=== PATIENT | male | born 1940 | race Caucasian/White ===

== ENCOUNTER 2020-07-26 07:43 | Observation (INO) ==
--- NOTE | 2020-07-20 14:13 | PAT Medication Instructions ---
Medication Instructions Date of Service July 20, 2020 Home Medications acetaminophen [Tylenol Arthritis Pain] 650 mg PO BID atorvastatin 20 mg PO HS ferrous sulfate [iron] 325 mg PO 2XWK levothyroxine 50 mcg PO QAM multivitamin 1 cap PO DAILY pyridoxine (vitamin B6) [Vitamin B-6] 100 mg PO DAILY tamsulosin 0.4 mg PO BID DO NOT take the morning of surgery ferrous sulfate [iron] 325 mg PO 2XWK multivitamin 1 cap PO DAILY pyridoxine (vitamin B6) 100 mg PO DAILY Take morning of surgery With a small sip of water, OTHERWISE NOTHING TO EAT OR DRINK AFTER MIDNIGHT: acetaminophen [Tylenol Arthritis Pain] 650 mg PO BID (if needed, may be taken up to four hours before surgery) levothyroxine 50 mcg PO QAM tamsulosin 0.4 mg PO BID Take evening before surgery acetaminophen [Tylenol Arthritis Pain] 650 mg PO BID atorvastatin 20 mg PO HS tamsulosin 0.4 mg PO BID Other Notes If you have any questions please call us at [phone] or [phone] or [phone] or [phone]
--- NOTE | 2020-07-23 11:38 | Anesthesiology Consultation ---
Date of Service July 23, 2020 Assessment & Plan (1) Encounter for pre-operative examination: Per assessment on 07/20: Travel screen negative. No known COVID-19 positive contacts or current COVID-19 related symptoms. Surgeon arranging preop COVID testing (done already 07/23 at [facility] per pt). Awaiting results. Chart Review Chart Review: Acceptable Risk for Surgery (pending surgeon-ordered PCP clearance) and Patient seen in Pre Admission Testing Teaching & Discussion Pre-Anesthesia Teaching/Discussion Notes: Instructed NPO after midnight before surgery,except medications with 15 cc of water. Medication instructions provided according to the PAT guidelines. History Surgery Operation Date: 07/26/20 13:15 Proposed Procedures p Right Total Knee Arthroplasty - Ulices Augustin MD Height/Weight Height: 5 ft 8 in Weight: 99.6 kg Allergies Allergy/AdvReac Type Severity Reaction Status Date / Time No Known Allergies Allergy Verified 07/20/20 13:58 Medications Home Medications Medication Instructions Recorded Confirmed Last Taken acetaminophen [Tylenol Arthritis 650 mg PO BID 05/08/20 07/20/20 05/16/20 17:00 Pain] atorvastatin 20 mg PO HS 05/08/20 07/20/20 05/17/20 04:30 ferrous sulfate [iron] 325 mg PO 2XWK 05/08/20 07/20/20 05/14/20 17:00 levothyroxine 50 mcg PO QAM 05/08/20 07/20/20 05/17/20 04:30 multivitamin 1 cap PO DAILY 05/08/20 07/20/20 05/16/20 17:00 pyridoxine (vitamin B6) [Vitamin 100 mg PO DAILY 05/08/20 07/20/20 05/16/20 08:00 B-6] tamsulosin 0.4 mg PO BID 05/08/20 07/20/20 05/16/20 17:00 Past Medical History Medical History Back pain Enlarged prostate High cholesterol Hypothyroidism Lung nodule dx 10 years ago, under surveillance by PCP Lyme disease dx 05/17/20 - s/p treatment Osteoarthritis Sleep apnea CPAP Exercise / Class Metabolic Activity III < 4 Walking/Shop/Light housework Past Surgical History Surgical History History of back surgery History of colonoscopy History of surgery GROWTH OF CHEST , NECK AND ONE SHOULDER - BENIGN History of surgery LEFT LEG ( CHILD)- NO HARDWARE History of total left knee replacement Past Anesthesia History No Hx of Anesthesia Complications and No Family Hx of Anesthesia Complications History of PONV No Hx of PONV and No Hx of Motion Sickness Social History Smoking Status: Never smoker Do You Dip or Chew Tobacco: No Hx Alcohol Use: Yes (rare) alcohol intake frequency: holidays/special occasions only Hx Substance Use: No substance use type: does not use Review of Systems Patient denies chest pain, shortness of breath, joint pain, reflux, cough, wheezing, palpitations. Physical Exam Vital Signs VITALS BP 142/77 P 57 TEMP 98.3 SP02 95%RA RESP 16 PHYSICAL Full neck and c-spine range of motion. Full TMJ range of motion. TMD 3.5 finger breaths Mallampati Score 1 Dentition: intact, + caps molars Lungs: clear throughout to auscultation Cardiac: regular rate and rhythm, no murmurs noted Spine: normal Carotid arteries: negative bruit Extremities: no edema Testing Laboratory Results 07/23/20 11:56 07/23/20 11:56 PT 11.4 Seconds (9.0-12.0) 07/23/20 11:56 INR 1.1 (0.9-1.1) 07/23/20 11:56 APTT 28.7 Seconds (21.0-31.0) 07/23/20 11:56 Hemoglobin A1c 5.6 % (4.5-5.6) 07/23/20 11:56 Urine Color Yellow 07/23/20 11:56 Urine Appearance Clear (Clear) 07/23/20 11:56 Urine pH 5.0 (4.5-7.5) 07/23/20 11:56 Ur Specific [place] 1.023 (1.000-1.030) 07/23/20 11:56 Urine Protein Trace (Negative) H 07/23/20 11:56 Urine Glucose (UA) Negative (Negative) 07/23/20 11:56 Urine Ketones Negative (Negative) 07/23/20 11:56 Urine Nitrite Negative (Negative) 07/23/20 11:56 Ur Leukocyte Esterase Negative (Negative) 07/23/20 11:56 Urine WBC (Auto) 1-5 /hpf (0-5) 07/23/20 11:56 Urine RBC (Auto) 0-4 /hpf (0-4) 07/23/20 11:56 U Hyaline Cast (Auto) 1-5 /lpf (0-5) 07/23/20 11:56 U Epithel Cells (Auto) 5-10 /lpf (0-5) H 07/23/20 11:56 Urine Bacteria (Auto) Negative (Negative) 07/23/20 11:56 Blood Type O Positive 07/23/20 11:56 Antibody Screen NEGATIVE 07/23/20 11:56 Electrocardiogram Date: 05/14/20 NSR at 67bpm. NS ST/TWA. Chest X-Ray Date: 05/14/20 Findings: + NAD
[2020-07-23 12:44] LABS: Basophils # (auto) 0.02 K/uL (0-0.2); Basophils % (auto) 0.3 %; Eosinophils # (auto) 0.17 K/uL (0-0.5); Eosinophils % (auto) 2.6 %; Hematocrit (blood only) 44.9 % (42-52); Hemoglobin 14.6 g/dL (14.0-18.0); Immature Granulocytes # (auto) 0.01 K/uL (0.00-0.02); Immature Granulocytes % (auto) 0.2 %; Lymphocytes % (auto) 18.2 %; Mean Corpuscular Hemoglobin 29.9 pg (25-34); Mean Corpuscular Hgb Conc 32.5 g/dL (32-36); Mean Corpuscular Volume 91.8 fL (80-100); Mean Platelet Volume 9.6 fL (7.4-10.4); Monocytes # (auto) 0.51 K/uL (0.11-0.59); Monocytes % (auto) 7.7 %; Neutrophils # (auto) 4.69 K/uL (1.4-6.5); Platelet Count 188 K/uL (130-400); RDW Coefficient of Variation 15.7 % (11.5-14.5); RDW Standard Deviation 52.9 fL (36.4-46.3); Red Blood Count 4.89 M/uL (4.7-6.1)
[2020-07-23 12:54] LABS: Albumin Level 3.3 gm/dl (3.4-5.0); Appearance Urine Clear (Clear); BUN Creatinine Ratio 12.6 (10-20); Bacteria Urine Automated Negative (Negative); Bilirubin Urine Negative (Negative); Blood Urine Negative (Negative); Calcium 9.3 mg/dl (8.5-10.1); Color Urine Yellow; Creatinine Clr Calc Pharmacy 46.3 ml/min; Est GFR (African American) 52.9; Est GFR (Non-African American) 45.6; Glucose Urine UA Negative (Negative); Ketones Urine Negative (Negative); Leukocyte Esterase Urine Negative (Negative); Nitrite Urine Negative (Negative); Potassium 3.9 mmol/L (3.5-5.1); Protein Urine Trace (Negative); RBC Urine Automated 0-4 /hpf (0-4); Specific Gravity Urine 1.023 (1.000-1.030); Urobilinogen Urine Negative (Negative)
[2020-07-23 12:56] LABS: INR 1.1 (0.9-1.1); Partial Thromboplastin Time 28.7 Seconds (21.0-31.0); Prothrombin Time 11.4 Seconds (9.0-12.0)
[2020-07-23 13:08] LABS: Estimated Average Glucose 114 mg/dl; Hemoglobin A1C 5.6 % (4.5-5.6)
--- NOTE | 2020-07-23 13:21 | History & Physical Report ---
Date of Service July 23, 2020 Assessment & Plan (1) Primary osteoarthritis of right knee: Treatment options discussed. He has failed conservative measures as above. Risks, benefits and alternatives to surgery including but not limited to infection, DVT, pain, stiffness, need for revision surgery, damage to blood vessels, damage to nerves, PE, , were discussed with the patient and they wish to proceed. Plan will be for right total knee arthroplasty at [facility] on 07/26/20. Will plan on ASA 81mg BID x 1 mo post op for DVT prophylaxis. Will plan on inpatient rehab/SNF stay post operatively vs home health PT. He will have COVID testing completed preoperatively. All questions answered. F/u post operatively. History of Present Illness Chief Complaint: Right knee pain Primary Care Provider: Jaylin Bryson, 79 year old male with PMHx significant for CLIF, BPH, high cholesterol, hypothyroid who presents with ongoing right knee pain. His pain is affecting his ability to carry out daily activities. Previously has done well with left knee replacement. He has failed conservative measures including anti-inflammatories and injections. He would like to proceed with right knee replacement. Surgery previously was scheduled for April however was cancelled due to acute onset of shoulder pain with concern for possible septic shoulder. He ultimately was diagnosed with Lyme disease which has been treated by his PCP. Patient denies headaches, sweats, fevers, chills, double vision, blurred vision, cough, sore throat, dysphagia, chest pain, sob, wheezing, n/v/d/c, numbness, tingling, fatigue, urinary symptoms, mood disorders. ROS positive for right knee pain and stiffness. Allergies Allergy/AdvReac Type Severity Reaction Status Date / Time No Known Allergies Allergy Verified 07/20/20 13:58 Home Medications Home Medications Medication Instructions Recorded Confirmed Type acetaminophen [Tylenol Arthritis 650 mg PO BID 05/08/20 07/20/20 History Pain] atorvastatin 20 mg PO HS 05/08/20 07/20/20 History ferrous sulfate [iron] 325 mg PO 2XWK 05/08/20 07/20/20 History levothyroxine 50 mcg PO QAM 05/08/20 07/20/20 History multivitamin 1 cap PO DAILY 05/08/20 07/20/20 History pyridoxine (vitamin B6) [Vitamin 100 mg PO DAILY 05/08/20 07/20/20 History B-6] tamsulosin 0.4 mg PO BID 05/08/20 07/20/20 History Past Med/Surg History Medical History Back pain Enlarged prostate High cholesterol Hypothyroidism Lung nodule dx 10 years ago, under surveillance by PCP Lyme disease dx 05/17/20 - s/p treatment Osteoarthritis Sleep apnea CPAP Surgical History History of back surgery History of colonoscopy History of surgery GROWTH OF CHEST , NECK AND ONE SHOULDER - BENIGN History of surgery LEFT LEG ( CHILD)- NO HARDWARE History of total left knee replacement Social History Smoking Status: Never smoker Do You Dip or Chew Tobacco: No; Hx Alcohol Use: Yes (rare) Hx Substance Use: No Preferred Language: Yi Communication Ability: Effective Communication Ability Comment: [facility] Tentering Machine Off Bearer Required: No Beliefs That Will Affect Care: None Current Living Situation: Alone Other Information That Helps Us Care for You: No Feels Safe at Home: Yes Safety Concerns: Feels Safe At This Time Review of Systems All systems reviewed & are unremarkable except as noted in HPI & below Physical Exam Constitutional: well developed and well nourished; no acute distress Eyes: PERRL, conjunctivae normal, anicteric sclerae ENMT: external ear and nose normal, oropharynx normal Neck: trachea midline, no thyromegaly Respiratory: normal respiratory effort, lungs clear to auscultation Cardiovascular: RRR, no murmur, no edema Musculoskeletal: Right knee: ROM 3-125 degrees, crepitation on ROM with mild effusion. Stable to valugs and varus stress. Tenderness to medial joint line. Positive Opal's. Skin: no rashes, warm and dry Neurologic: patellar DTR's 2+ bilat, sensation intact Psychiatric: A+Ox3, euthymic affect Results & Data ([facility]) Laboratory Results Lab Results 07/23/20 07/23/20 07/23/20 Range/Units 11:56 11:56 11:56 WBC 6.60 (4.8-10.8) K/uL RBC 4.89 (4.7-6.1) M/uL Hgb 14.6 (14.0-18.0) g/dL Hct 44.9 (42-52) % MCV 91.8 (80-100) fL MCH 29.9 (25-34) pg MCHC 32.5 (32-36) g/dL RDW Std Deviation 52.9 H (36.4-46.3) fL RDW Coeff of Armani 15.7 H (11.5-14.5) % Plt Count 188 (130-400) K/uL MPV 9.6 (7.4-10.4) fL Immature Gran % (Auto) 0.2 % Neut % (Auto) 71.0 % Lymph % (Auto) 18.2 % [place] % (Auto) 7.7 % Eos % (Auto) 2.6 % Baso % (Auto) 0.3 % Neut # (Auto) 4.69 (1.4-6.5) K/uL Lymph # (Auto) 1.20 (1.2-3.4) K/uL Trinity # (Auto) 0.51 (0.11-0.59) K/uL Eos # (Auto) 0.17 (0-0.5) K/uL Baso # (Auto) 0.02 (0-0.2) K/uL Immature Gran # (Auto) 0.01 (0.00-0.02) K/uL PT 11.4 (9.0-12.0) Seconds INR 1.1 (0.9-1.1) APTT 28.7 (21.0-31.0) Seconds PTT Ratio 1.0 Sodium 141 (136-145) mmol/L Potassium 3.9 (3.5-5.1) mmol/L Chloride 107 (98-107) mmol/L Carbon Dioxide 26 (21-32) mmol/L Anion Gap 8.0 (3-11) BUN 18 (7-18) mg/dl Creatinine 1.43 H (0.6-1.4) mg/dl Est Cr Clr Drug Dosing 46.3 ml/min Est GFR ( Amer) 52.9 Est GFR (Non-Af Amer) 45.6 BUN/Creatinine Ratio 12.6 (10-20) Glucose 124 H (70-99) mg/dl Estimat Average Glucose mg/dl Hemoglobin A1c (4.5-5.6) % Calcium 9.3 (8.5-10.1) mg/dl Albumin 3.3 L (3.4-5.0) gm/dl Urine Color Urine Appearance (Clear) Urine pH (4.5-7.5) Ur Specific [place] (1.000-1.030) Urine Protein (Negative) Urine Glucose (UA) (Negative) Urine Ketones (Negative) Urine Blood (Negative) Urine Nitrite (Negative) Urine Bilirubin (Negative) Urine Urobilinogen (Negative) Ur Leukocyte Esterase (Negative) Urine WBC (Auto) (0-5) /hpf Urine RBC (Auto) (0-4) /hpf U Hyaline Cast (Auto) (0-5) /lpf U Epithel Cells (Auto) (0-5) /lpf Urine Bacteria (Auto) (Negative) 07/23/20 07/23/20 Range/Units 11:56 11:56 WBC (4.8-10.8) K/uL RBC (4.7-6.1) M/uL Hgb (14.0-18.0) g/dL Hct (42-52) % MCV (80-100) fL MCH (25-34) pg MCHC (32-36) g/dL RDW Std Deviation (36.4-46.3) fL RDW Coeff of Armani (11.5-14.5) % Plt Count (130-400) K/uL MPV (7.4-10.4) fL Immature Gran % (Auto) % Neut % (Auto) % Lymph % (Auto) % Trinity % (Auto) % Eos % (Auto) % Baso % (Auto) % Neut # (Auto) (1.4-6.5) K/uL Lymph # (Auto) (1.2-3.4) K/uL Trinity # (Auto) (0.11-0.59) K/uL Eos # (Auto) (0-0.5) K/uL Baso # (Auto) (0-0.2) K/uL Immature Gran # (Auto) (0.00-0.02) K/uL PT (9.0-12.0) Seconds INR (0.9-1.1) APTT (21.0-31.0) Seconds PTT Ratio Sodium (136-145) mmol/L Potassium (3.5-5.1) mmol/L Chloride (98-107) mmol/L Carbon Dioxide (21-32) mmol/L Anion Gap (3-11) BUN (7-18) mg/dl Creatinine (0.6-1.4) mg/dl Est Cr Clr Drug Dosing ml/min Est GFR ( Amer) Est GFR (Non-Af Amer) BUN/Creatinine Ratio (10-20) Glucose (70-99) mg/dl Estimat Average Glucose 114 mg/dl Hemoglobin A1c 5.6 (4.5-5.6) % Calcium (8.5-10.1) mg/dl Albumin (3.4-5.0) gm/dl Urine Color Yellow Urine Appearance Clear (Clear) Urine pH 5.0 (4.5-7.5) Ur Specific [place] 1.023 (1.000-1.030) Urine Protein Trace H (Negative) Urine Glucose (UA) Negative (Negative) Urine Ketones Negative (Negative) Urine Blood Negative (Negative) Urine Nitrite Negative (Negative) Urine Bilirubin Negative (Negative) Urine Urobilinogen Negative (Negative) Ur Leukocyte Esterase Negative (Negative) Urine WBC (Auto) 1-5 (0-5) /hpf Urine RBC (Auto) 0-4 (0-4) /hpf U Hyaline Cast (Auto) 1-5 (0-5) /lpf U Epithel Cells (Auto) 5-10 H (0-5) /lpf Urine Bacteria (Auto) Negative (Negative) Diagnostic Findings Right knee radiographs: Significant degnerative changes patellofemoral compartment. He is bone on bone lateral compartment with periarticular osteophyte formation and subchondral sclerosis.
[~2020-07-26 07:43] MED LIST: ACETAMINOPHEN 500 MG TAB PO SCH; BUPIVACAINE 0.25% 30 ML VIAL ONE; BUPIVACAINE 0.5 % 5 MG/1 ML PF 10ML VIAL ONE; CEFAZOLIN 2000MG 2,000 MG/15 ML SYR IV SCH; CeleBREX 200 MG CAP PO SCH; FAMOTIDINE 20 MG TAB PO SCH; GABAPENTIN 300 MG CAP PO SCH; LR 500ML BOLUS, THEN 15ML/HR IV SCH; METOCLOPRAMIDE HCL 10 MG TABLET PO SCH; ROPIVACAINE 0.5% HCL/PF 150 MG, BUPIVACAINE 0.5% MPF 30 ML, EPINEPHrine 30MG/30ML (OR U... INSTIL SCH; TRANEXAMIC ACID 1,000 MG **IV Intra-op IV SCH; TRANEXAMIC ACID 1,000 MG **IV Pre-op IV SCH; dexAMETHasone 4 MG TAB PO SCH
[2020-07-26] MEDS ORDERED: ORTHO JOINT ANESTHETIC ONE (08:10)
[2020-07-26] MEDS ORDERED: BACITRACIN INJ 50,000 UNIT VIAL ONE (08:10)
--- NOTE | 2020-07-26 08:20 | History & Physical Bridge Note ---
Date of Service July 26, 2020 History & Physical Bridge Note I have examined the patient, reviewed the History & Physical and in the interval since the performance of the History & Physical I have noted the following changes of clinical significance: no changes noted
[2020-07-26] MEDS ORDERED: PROPOFOL IV EMULSION 10 MG/ML 20 ML VIAL IV ONE ×3 (08:29→11:41)
[2020-07-26] MEDS ORDERED: ONDANSETRON INJ 2 MG/ML 2 ML VIAL ONE (08:29)
[2020-07-26] MEDS ORDERED: LIDOCAINE HCL 2% 2 ML VIAL/AMP(20MG/ML) INFIL ONE (08:29)
[2020-07-26] MEDS ORDERED: fentaNYL citrate 100 MCG/2 ML VIAL ONE (08:29)
[2020-07-26] MEDS ORDERED: fentaNYL citrate 100 MCG/2 ML VIAL IV PRN (08:40)
[2020-07-26] MEDS ORDERED: ATROPINE SULFATE 0.1 MG/ML 10ML SYR IV PRN (08:40)
[2020-07-26] MEDS ORDERED: ONDANSETRON INJ 2 MG/ML 2 ML VIAL IV PRN ×2 (08:40→12:42)
[2020-07-26] MEDS ORDERED: ePHEDrine sulfate 50 MG/ML AMP IV PRN (08:40)
[2020-07-26] MEDS ORDERED: MIDAZOLAM HCL 1 MG/ML 2ML VIAL ONE (10:24)
--- NOTE | 2020-07-26 11:22 | Operative Report ---
Post Operative Report Pre & Post Diagnosis Operation Date: 07/26/20 09:55 Pre-Op Diagnosis: Right Knee Osteoarthritis Post-Op Diagnosis: Right Knee Osteoarthritis I identified the patient and participated in the time-out.: Yes Procedure Operation Date: 07/26/20 09:55 Actual Procedures p Right Total Knee Arthroplasty - Ulices Augustin MD Surgeon Ulices Augustin MD Adult Manager Anjel Kelsey PA-C Estimated Blood Loss 20 Findings Consistent with Post-Op Diagnosis Specimens Bone and tissue Drains None Anesthesia Type MAC Spinal Regional Complications none Disposition Accompanied Patient To Recovery: No Disposition: Recovery Room Indications The patient is an 79-year-old male with longstanding arthritic change of the right knee. He is [id number] in the medial compartment. He has failed conservative measures including injection, anti-inflammatories, rehab. He wishes to proceed with a right total knee arthroplasty. Description of Procedure Risks benefits and alternatives of surgery including but not limited to infection, DVT, pain, stiffness, need for surgery, damage to blood vessels, damage to nerves or risks of anesthesia were discussed with the patient and they wished to proceed. The patient was identified and the laterality was confirmed and marked. They received a preoperative antibiotic as well as a spinal anesthetic and an abductor canal block. A well-padded tourniquet was applied and then the limb was prepped and draped in standard manner with ChloraPrep. The limb was exsanguinated and the tourniquet was inflated. I made a standard anterior incision. I sharply incised the skin then utilized Bovie electrocautery to achieve hemostasis. I made a medial parapatellar art hrotomy and mobilized the patella laterally. I then excised the anterior horns of the medial and lateral meniscus as well as the infrapatellar fat pad. I elevated a portion of the MCL off of the tibia. I then pinned into place a patient-matched distal femoral cutting guide and made my distal femoral resection. I then pinned into place the 5 in 1 femoral cutting guide. I made my anterior, posterior and chamfer cuts. I then excised the cruciates and the remaining portions of the menisci. I then pinned into place a patient- matched tibial cutting guide and made my tibial resection. I then pinned into place the tibial plate a utilizing alignment billie to confirm rotation. I then cut for the post. Utilizing a lamina computer animator and I then removed posterior osteophytes off the femur. I then placed a trial femur into position and cut for the trochlear component. I then sequentially trialed to size the polyethylene until there was good soft tissue balancing and range of motion. He still has some laxity with a 12 mm poly-. Upsizing to a 13 he started to have a little bit of a flexion contracture. I elected to use a constrained liner at 12 mm. I then prepared the patella with a freehand cut utilizing sagittal saw. I sized and drilled for the patella. There was some lateral tracking of the patella. A small lateral release was required. All the trial components were removed. The deep tissues were anesthetized with an ortho mix solution. Then with Simplex HV with gentamicin cement, I cemented my definitive components. Definitive components, Lopez and Nephew Buddy 2: Femur 5 Tibia 5 Poly 12 constrained Patella 35 oval A betadine soak was performed. The arthrotomy was closed with interrupted #1 Vicryl suture subcutaneous tissue was closed with interrupted 2-0 Vicryl suture. The skin was closed with with jessica. An Acticoat and Ranjana dressing were placed. Sterile dressings were applied. All needle and sponge counts were correct at the end of the procedure patient was transferred to the PACU in stable condition without apparent complication. The PA-C was necessary for assistance with procedure for assistance in positioning, prepping, draping, retraction and closure. I attest to the content of the Intraoperative Record and any orders documented therein. Any exceptions are noted below.
[2020-07-26] MEDS ORDERED: HYDROmorphone INJ 0.5 MG/0.5 ML SYR IV PRN (12:42)
[2020-07-26] MEDS ORDERED: OXYCODONE HCL IR 5 MG TAB (IMMEDIATE RELEASE) PO PRN (12:42)
[2020-07-26] MEDS ORDERED: NALOXONE HCL 0.4 MG/1 ML VIAL/CARP IV PRN (12:42)
[2020-07-26] MEDS ORDERED: MAGNESIUM HYDROXIDE SUSP 30 ML UDC PO PRN (12:42)
[2020-07-26] MEDS ORDERED: bisacodyL 10 MG SUPP PR PRN (12:42)
[2020-07-26] MEDS: SODIUM CHLORIDE 0.9% 1000ML 1,000 ML IV SCH ×2 (13:08→23:07)
--- NOTE | 2020-07-26 13:12 | XRay Report ---
RIGHT KNEE 2 VIEWS History: Right total knee arthroplasty. Degenerative arthritis. Postop. FINDINGS: The patient is status post a right total knee arthroplasty. The hardware is intact. No frac ture or dislocation. Skin jessica are in place. IMPRESSION: Right total knee arthroplasty. No evidence for hardware complication. ACT 112: Negative or not required by law. Electronically signed by: Ludwig Peoples M.D. 07/26/2020 12:54 PM
[2020-07-26] MEDS: ACETAMINOPHEN 500 MG TAB PO SCH ×2 (14:42→21:38)
[2020-07-26] MEDS: CEFAZOLIN 2000MG 2,000 MG/15 ML SYR IV SCH (17:30)
[2020-07-26] MEDS: FERROUS GLUCONATE 324 MG TAB PO SCH (17:31)
--- NOTE | 2020-07-26 17:39 | Anesthesiology Progress Note ---
Date of Service July 26, 2020 Anesthesia Post Procedure Vital Signs Vital Signs: Temp Pulse Pulse Resp BP BP Pulse Ox 07/26/20 15:40 36.5 C 54 L 17 148/81 H 94 07/26/20 14:48 45 L 16 144/85 H 97 07/26/20 13:41 51 L 16 146/79 H 94 07/26/20 13:12 36.5 C 63 16 139/76 94 07/26/20 12:40 36.6 C 51 L 16 137/73 95 07/26/20 12:20 36.4 C L 50 L 16 123/68 94 07/26/20 12:10 54 L 15 116/65 94 07/26/20 12:00 36.3 C L 63 14 122/65 96 07/26/20 08:56 36.7 C 58 L 18 179/90 H 97 Transfer of Care Handoff Completed per policy Notes Mental Status: alert / awake / arousable and participated in evaluation Patient Amnestic to Procedure: Yes Nausea / Vomiting: adequately controlled Pain: adequately controlled Airway Patency, RR, SpO2: stable & adequate BP & HR: stable & adequate Hydration State: stable & adequate Neuraxial Anesthesia: was administered and sensory block is resolving Anesthetic Complications: no major complications apparent and Pt Satisfied with anesthetic care
[2020-07-26] MEDS: ATORVASTATIN 20 MG TAB PO SCH (21:36)
[2020-07-26] MEDS: SENNA 8.6 MG TAB PO SCH (21:37)
[2020-07-26] MEDS: TAMSULOSIN HCL 0.4 MG CAP PO SCH (21:37)
[2020-07-26] MEDS: DOCUSATE SODIUM 100 MG CAP PO SCH (21:38)
[2020-07-27] MEDS: CEFAZOLIN 2000MG 2,000 MG/15 ML SYR IV SCH (02:08)
[2020-07-27] MEDS: ACETAMINOPHEN 500 MG TAB PO SCH ×3 (06:16→21:59)
[2020-07-27] MEDS: LEVOTHYROXINE SODIUM 50 MCG TABLET PO SCH (06:16)
[2020-07-27 06:42] LABS: Hematocrit (blood only) 37.6 % (42-52); Hemoglobin 12.1 g/dL (14.0-18.0); Mean Corpuscular Hemoglobin 29.3 pg (25-34); Mean Corpuscular Hgb Conc 32.2 g/dL (32-36); Mean Platelet Volume 9.5 fL (7.4-10.4); Platelet Count 189 K/uL (130-400); RDW Coefficient of Variation 15.5 % (11.5-14.5); RDW Standard Deviation 52.1 fL (36.4-46.3); Red Blood Count 4.13 M/uL (4.7-6.1); White Blood Count 15.32 K/uL (4.8-10.8)
[2020-07-27 07:20] LABS: BUN Creatinine Ratio 16.6 (10-20); Calcium 8.6 mg/dl (8.5-10.1); Creatinine Clr Calc Pharmacy 40.9 ml/min; Est GFR (African American) 45.5; Est GFR (Non-African American) 39.2; Potassium 4.3 mmol/L (3.5-5.1)
--- NOTE | 2020-07-27 07:38 | Orthopedic Progress Note ---
Date of Service July 27, 2020 Assessment & Plan (1) Primary osteoarthritis of right knee: POD#1 Right TKA -Pain management -DVT prophylaxis-ASA 81mg BID x 1 mo -PT/OT -AM labs hemoglobin at 12.1 from 14.6 acute blood loss anemia likely due to surgical loss vs dilutional. Creatinine mildly elevated at 1.6 form baseline of 1.4. -D/C planning-Will see how he does with PT. Likely home tomorrow with HHPT, possible SNF Admission and Anticipated Discharge Date Admission Date: July 26, 2020 Subjective Patient is POD1 from right TKA. Doing well this morning, not having any pain. Initially thinking of going to a SNF/inpatient rehab, but now that he may want to go home. He wants to see how he does with PT first. No complaints currently, denies chest pain, sob, dizziness, light headedness, n/v/d. Review of Systems Review of Systems: All systems reviewed & are unremarkable except as noted in HPI & below Physical Exam Physical Exam: Right knee dressing is c/d/i, toes are mobile with good dors iflexion. No calf tenderness. Distally n/v status and sensation intact. Constitutional: well developed and well nourished; no acute distress Results & Data ([facility]) Vital Signs (Past 12 Hours) Vital Signs Temp Pulse Resp BP Pulse Ox 07/27/20 07:17 36.5 C 63 16 130/69 92 07/27/20 03:40 36.8 C 60 14 118/62 93 07/26/20 23:52 36.8 C 61 14 131/66 92 Laboratory Results H & H 07/23/20 07/27/20 Range/Units 11:56 06:00 Hgb 14.6 12.1 L (14.0-18.0) g/dL Hct 44.9 37.6 L (42-52) % Coagulation 07/23/20 Range/Units 11:56 INR 1.1 (0.9-1.1)
[2020-07-27] MEDS: TAMSULOSIN HCL 0.4 MG CAP PO SCH ×2 (08:24→20:43)
[2020-07-27] MEDS: MULTIVITAMIN TAB PO SCH (08:24)
[2020-07-27] MEDS: FERROUS GLUCONATE 324 MG TAB PO SCH ×2 (08:24→19:01)
[2020-07-27] MEDS: DOCUSATE SODIUM 100 MG CAP PO SCH ×2 (08:25→20:44)
[2020-07-27] MEDS: SENNA 8.6 MG TAB PO SCH (20:44)
[2020-07-27] MEDS: ATORVASTATIN 20 MG TAB PO SCH (20:44)
[2020-07-28] MEDS: LEVOTHYROXINE SODIUM 50 MCG TABLET PO SCH (06:17)
[2020-07-28] MEDS: ACETAMINOPHEN 500 MG TAB PO SCH (06:17)
--- NOTE | 2020-07-28 06:53 | Orthopedic Progress Note ---
Date of Service July 28, 2020 Assessment & Plan (1) Primary osteoarthritis of right knee: POD#2 Right TKA -Pain management -DVT prophylaxis-ASA 81mg BID x 1 mo -PT/OT -D/C planning: patient would like discharge home with HHPT later today. Admission and Anticipated Discharge Date Admission Date: July 26, 2020 Supervising Physician Co-Signing Physician Notes Overall doing well. Complains of stiffness in the knee. Plan to discharge home today. Subjective Patient is POD2 Right TKA. denies CP/SOB denies Fever/Chills states he had "dry heaves" this am while in the bathroom but better now. Physical Exam Physical Exam: Vital Signs Temp 36.4 C L 07/28/20 06:43 Pulse 63 07/28/20 06:43 Resp 15 07/28/20 06:43 BP 129/81 07/28/20 06:43 Pulse Ox 98 07/28/20 06:43 Intake & Output 07/27/20 07/27/20 07/28/20 06:59 18:59 06:59 Intake Total 1238.333 / 2938.33 3 925 / 1125 200 / 1125 Output Total 425 / 945 250 / 425 175 / 425 Balance 813.333 / 1993.333 675 / 700 25 / 700 Intake: IV 998.333 / 1548.333 925 / 925 Nss 1000ML 1,0 00 ml @ 100 mls/ 998.333 / 998.333 925 / 925 hr IV .Q10H SC H Rx#:[id number] Oral 240 / 440 200 / 200 Output: Urine 425 / 925 250 / 425 175 / 425 Other: # Unmeasured Voi ds 1 Constitutional: WD/WN, vitals as above no acute distress Musculoskeletal: Right knee: NVDI, calf SNT, negative cristi sign. DP palpable, able to wiggle toes/ankle movement without difficulty. JOE dressing clean dry and intact. expected post-operative bruising noted. Results & Data ([facility]) Vital Signs (Past 12 Hours) Vital Signs Temp Pulse Resp BP BP Pulse Ox 07/28/20 06:43 36.4 C L 63 15 129/81 98 07/27/20 22:54 37.0 C 69 14 157/70 H 94 Laboratory Results Laboratory Results WBC 15.32 K/uL (4.8-10.8) H 07/27/20 06:00 RBC 4.13 M/uL (4.7-6.1) L 07/27/20 06:00 Hgb 12.1 g/dL (14.0-18.0) L 07/27/20 06:00 Hct 37.6 % (42-52) L 07/27/20 06:00 MCV 91.0 fL (80-100) 07/27/20 06:00 MCH 29.3 pg (25-34) 07/27/20 06:00 MCHC 32.2 g/dL (32-36) 07/27/20 06:00 RDW Std Deviation 52.1 fL (36.4-46.3) H 07/27/20 06:00 RDW Coeff of Armani 15.5 % (11.5-14.5) H 07/27/20 06:00 Plt Count 189 K/uL (130-400) 07/27/20 06:00 MPV 9.5 fL (7.4-10.4) 07/27/20 06:00 Immature Gran % (Auto) 0.2 % 07/23/20 11:56 Neut % (Auto) 71.0 % 07/23/20 11:56 Lymph % (Auto) 18.2 % 07/23/20 11:56 [place] % (Auto) 7.7 % 07/23/20 11:56 Eos % (Auto) 2.6 % 07/23/20 11:56 Baso % (Auto) 0.3 % 07/23/20 11:56 Neut # (Auto) 4.69 K/uL (1.4-6.5) 07/23/20 11:56 Lymph # (Auto) 1.20 K/uL (1.2-3.4) 07/23/20 11:56 [place] # (Auto) 0.51 K/uL (0.11-0.59) 07/23/20 11:56 Eos # (Auto) 0.17 K/uL (0-0.5) 07/23/20 11:56 Baso # (Auto) 0.02 K/uL (0-0.2) 07/23/20 11:56 Immature Gran # (Auto) 0.01 K/uL (0.00-0.02) 07/23/20 11:56 PT 11.4 Seconds (9.0-12.0) 07/23/20 11:56 INR 1.1 (0.9-1.1) 07/23/20 11:56 APTT 28.7 Seconds (21.0-31.0) 07/23/20 11:56 PTT Ratio 1.0 07/23/20 11:56 Sodium 138 mmol/L (136-145) 07/27/20 06:00 Potassium 4.3 mmol/L (3.5-5.1) 07/27/20 06:00 Chloride 109 mmol/L (98-107) H 07/27/20 06:00 Carbon Dioxide 22 mmol/L (21-32) 07/27/20 06:00 Anion Gap 7.0 (3-11) 07/27/20 06:00 BUN 27 mg/dl (7-18) H 07/27/20 06:00 Creatinine 1.62 mg/dl (0.6-1.4) H 07/27/20 06:00 Est Cr Clr Drug Dosing 40.9 ml/min 07/27/20 06:00 Est GFR ( Amer) 45.5 07/27/20 06:00 Est GFR (Non-Af Amer) 39.2 07/27/20 06:00 BUN/Creatinine Ratio 16.6 (10-20) 07/27/20 06:00 Glucose 110 mg/dl (70-99) H 07/27/20 06:00 Estimat Average Glucose 114 mg/dl 07/23/20 11:56 Hemoglobin A1c 5.6 % (4.5-5.6) 07/23/20 11:56 Calcium 8.6 mg/dl (8.5-10.1) 07/27/20 06:00 Albumin 3.3 gm/dl (3.4-5.0) L 07/23/20 11:56 Urine Color Yellow 07/23/20 11:56 Urine Appearance Clear (Clear) 07/23/20 11:56 Urine pH 5.0 (4.5-7.5) 07/23/20 11:56 Ur Specific [place] 1.023 (1.000-1.030) 07/23/20 11:56 Urine Protein Trace (Negative) H 07/23/20 11:56 Urine Glucose (UA) Negative (Negative) 07/23/20 11:56 Urine Ketones Negative (Negative) 07/23/20 11:56 Urine Blood Negative (Negative) 07/23/20 11:56 Urine Nitrite Negative (Negative) 07/23/20 11:56 Urine Bilirubin Negative (Negative) 07/23/20 11:56 Urine Urobilinogen Negative (Negative) 07/23/20 11:56 Ur Leukocyte Esterase Negative (Negative) 07/23/20 11:56 Urine WBC (Auto) 1-5 /hpf (0-5) 07/23/20 11:56 Urine RBC (Auto) 0-4 /hpf (0-4) 07/23/20 11:56 U Hyaline Cast (Auto) 1-5 /lpf (0-5) 07/23/20 11:56 U Epithel Cells (Auto) 5-10 /lpf (0-5) H 07/23/20 11:56 Urine Bacteria (Auto) Negative (Negative) 07/23/20 11:56 Blood Type O Positive 07/23/20 11:56 Antibody Screen NEGATIVE 07/23/20 11:56 Diagnostic Findings RIGHT KNEE 2 VIEWS History: Right total knee arthroplasty. Degenerative arthritis. Postop. FINDINGS: The patient is status post a right total knee arthroplasty. The hardware is intact. No fracture or dislocation. Skin jessica are in place. IMPRESSION: Right total knee arthroplasty. No evidence for hardware complication.
[2020-07-28] MEDS ORDERED: ASPIRIN 81 MG ECTAB PO SCH (09:00)
[2020-07-28] MEDS: MULTIVITAMIN TAB PO SCH (09:13)
[2020-07-28] MEDS: DOCUSATE SODIUM 100 MG CAP PO SCH (09:13)
[2020-07-28] MEDS: FERROUS GLUCONATE 324 MG TAB PO SCH (09:13)
[2020-07-28] MEDS: TAMSULOSIN HCL 0.4 MG CAP PO SCH (09:13)
--- NOTE | 2020-08-02 11:52 | Discharge Summary ---
Date of Service August 02, 2020 Admission HPI Per Admitting Provider 79 year old male with PMHx significant for LCIF, BPH, high cholesterol, hypothyroid who presents with ongoing right knee pain. His pain is affecting his ability to carry out daily activities. Previously has done well with left knee replacement. He has failed conservative measures including anti-inflammatories and injections. He would like to proceed with right knee replacement. Surgery previously was scheduled for April however was cancelled due to acute onset of shoulder pain with concern for possible septic shoulder. He ultimately was diagnosed with Lyme disease which has been treated by his PCP. Patient denies headaches, sweats, fevers, chills, double vision, blurred vision, cough, sore throat, dysphagia, chest pain, sob, wheezing, n/v/d/c, numbness, tingling, fatigue, urinary symptoms, mood disorders. ROS positive for right knee pain and stiffness. Admission Exam Per Admitting Provider Physical Exam Constitutional: well developed and well nourished; no acute distress Eyes: PERRL, conjunctivae normal, anicteric sclerae ENMT: external ear and nose normal, oropharynx normal Neck: trachea midline, no thyromegaly Respiratory: normal respiratory effort, lungs clear to auscultation Cardiovascular: RRR, no murmur, no edema Musculoskeletal: Right knee: ROM 3-125 degrees, crepitation on ROM with mild effusion. Stable to valugs and varus stress. Tenderness to medial joint line. Positive Opal's. Skin: no rashes, warm and dry Neurologic: patellar DTR's 2+ bilat, sensation intact Psychiatric: A+Ox3, euthymic affect Principal Diagnosis Right knee DJD Discharge Data Allergies Allergy/AdvReac Type Severity Reaction Status Date / Time No Known Allergies Allergy Verified 07/26/20 08:45 Consultations 07/26/20 12:42 Consult Case Management - Discharge Planning Routine Procedures Performed Operation Date: 07/26/20 09:55 Actual Procedures p Right Total Knee Arthroplasty - Ulices Augustin MD Ordered Studies 07/26/20 05:00 US - OR guided needle placemen Routine Hospital Course (1) Primary osteoarthritis of right knee: Patient was admitted on the above-noted date and had the above-noted surgery performed of which he tolerated well. On his first postoperative day, he was doing well and pain was controlled. He denied chest pain, shortness of breath, lightheadedness. Dressings were clean dry and intact. Toes are mobile. Calves are soft nontender. Neurovascular is intact. Vital signs are stable. Hemoglobin was 12.1. He was started on PT and OT protocols and continued on DVT prophylaxis and pain management. By his second postoperative day, he had some mild nausea that morning which was resolving. Vital signs are stable and he was afebrile. Russians were intact. Calves are soft nontender. Neurovascular is intact. He was remaining stable and progressing with his physical therapy. Was felt he be discharged on July 28, 2020. Total Time Total Time Spent Total Time Spent (In Minutes): 5 Discharge Plan Discharge Items Patient Disposition: Home - Home Health Services Reason For Visit: Right Knee Osteoarthritis Discharge Diagnosis: Right total knee replacement Condition on Discharge: Good Activity: Per Instructions section Lifting: Wait until after follow-up appointment Driving/Machine Use: no driving until cleared by your surgeon Weightbearing: Full weightbearing Weightbearing Comment: WBAT with walker Non-emergency contact: Surgeon Call non-emergency contact if: you have any medication questions, your temperature is above 101, your wound has increased redness, your wound has increased drainage and your wound pain has increased Follow-up/Referrals: Jaylin Bryson, [Primary Care Provider] - Diet: Regular Addtl Attending Provider Instructions: ACTIVITY RECOMMENDATIONS: SELF CARE INSTRUCTIONS AFTER TOTAL KNEE REPLACEMENT A. You may need to continue a physical therapy program after discharge from the hospital. There are several options available to you. Your doctor will assist you in selecting the best one for you. 1. An out-patient facility 2 to 3 times a week for therapy or home therapy. 2. Continue working on all exercises taught to you in the hospital. Your goals should be to increase bending of your knee to 90 degrees and beyond and to fully straighten your knee. B. You may progress at your own pace from walking with a walker or crutches to a cane; then to no assistive devices. C. Make walking a part of your daily routine. Be up as much as comfortable with rest periods throughout the day. Rest with leg elevation is very important. Use the ice wrap frequently for the first 3-4 weeks. D. There are no restrictions on activities. You may ride in a car, shop, participate in pmo business analyst and all social activities. E. Wear the long elastic stockings (JAVI hose) 20 hours a day for 2 weeks after surgery. They can be removed several times a day for laundering and for a bath. F. You may shower, no tub baths until cleared by your doctor. SPECIAL CARE INSTRUCTIONS: VERY IMPORTANT TO READ AND REVIEW A. There are a few signs you need to watch for after you are home. Call [facility] if you notice any of the followin. Increased severe knee pain. Some pain is expected especially when you exercise. 2. Increased swelling in your leg or knee; pain or swelling of the calf muscle in either lower leg. 3. Any fluid drainage from the incision. 4. Shortness of breath or chest pain. B. Please call [facility] at if you have any concerns or questions about your operation or recovery. The doctor or his nurse will return your call promptly. C. You must take antibiotics before dental work, bladder, bowel or other surgery. Your doctor will provide you with a permanent care to carry describing this precaution. IMPORTANT: * REMEMBER TO TAKE ASPIRIN, 81 MG, TWICE DAILY FOR 4 WEEKS UNLESS OTHERWISE DIRECTED. THIS IS YOUR BLOOD THINNER. * HIGH RISK PATIENTS MAY BE PRESCRIBED A STRONGER BLOOD THINNER. THIS WILL BE PROVIDED AT DISCHARGE. * CALL IF INCREASED PAIN, REDNESS, DRAINAGE OR FEVER GREATER THAT 101. * WEAR JAVI HOSE 20 HOURS PER DAY FOR 2 WEEKS. * JOE Dressing- This is a large suction dressing covering your incision. This will help pull any excess drainage from the wound and allow your incision to heal properly. You may shower with this if you can keep the unit outside of the shower. If any bleeding or leakage is noted please call your doctor's office. This will remain on your incision for 7 days and then should be removed. This can be done yourself or by the home nursing staff if applicable. The entire unit is disposable once removed. Once removed, keep incision clean and dry. If redness or drainage is noted, please call your surgeon. IF INCISION IS LEAKING THROUGH DRESSING, CALL THE OFFICE . FOLLOW UP VISIT: If appointment is not already scheduled: Please call [facility] to make a follow-up appointment for 2 weeks after your surgery at . Pending Studies at Discharge: No Stand-Alone Forms: [facility], Opioid Pain Management, Smoking Cessation Medications and DC Order Prescriptions: New acetaminophen 500 mg Tablet 1,000 mg PO Q8 21 Days Qty: 126 RF: 0 oxycodone 5 mg Tablet 5 - 10 mg PO Q6H PRN (Reason: pain) Qty: 30 RF: 0 docusate sodium 100 mg Capsule 100 mg PO BID 10 Days Qty: 20 RF: 0 aspirin 81 mg tablet,delayed release (DR/EC) 81 mg PO BID 30 Days Qty: 60 RF: 0 Continued atorvastatin 20 mg Tablet 20 mg PO HS RF: 0 tamsulosin 0.4 mg Capsule 0.4 mg PO BID RF: 0 levothyroxine 50 mcg Tablet 50 mcg PO QAM RF: 0 ferrous sulfate [iron] 325 mg (65 mg iron) Tablet 325 mg PO 2XWK RF: 0 pyridoxine (vitamin B6) [Vitamin B-6] 100 mg Tablet 100 mg PO DAILY RF: 0 multivitamin Capsule 1 cap PO DAILY RF: 0 Discontinued acetaminophen [Tylenol Arthritis Pain] 650 mg Tablet Extended Release 650 mg PO BID RF: 0 Discharge Orders: Discharge Order (Routine); Ordered 07/28/20 Ordered By: Trever Hong/Other Patient Handouts: DVT Post Op Prevention, ED Franklyn Matthews Admission Data Admit Date/Time: 07/26/20 12:09 Attending Provider: Ulices Augustin Admit Provider: Ulices Augustin Primary Care Provider: Jaylin Bryson Other Interventions: Discharge Summary Assessment (RN) Last Done: 07/28/20 08:27
== END 2020-07-28 13:51 | disposition home health service (06) ==
LOC: ASU 07:43 → 3E 07:43